=== PATIENT | male | born 1970 | race African-American/Black ===

== ENCOUNTER 2020-06-21 07:27 | Outpatient (REF) | payer OTHER, SELFPAY | END 2020-06-21 07:28 | disposition home or self-care (01) | LOC: HO.LAB 07:27 | PROVIDERS: Visit Provider Internal Medicine | DX: Z20.828 Contact with and (suspected) exposure to other viral communicable diseases (principal) | CPT/HCPCS: 36415; 87635 ==

== ENCOUNTER 2021-09-14 08:02 | Outpatient (REF) | payer OTHER, SELFPAY ==
[2021-09-14 15:40] LABS: COVID-19 Test Negative (Negative)
== END 2021-09-14 08:03 | disposition home or self-care (01) ==
LOC: HO.LAB 08:02
PROVIDERS: Visit Provider Internal Medicine
DX: Z20.822 Contact with and (suspected) exposure to COVID-19 (principal)
CPT/HCPCS: 36415; 87635; C9803

== ENCOUNTER 2021-09-21 14:17 | Outpatient (REF) | payer OTHER, SELFPAY ==
[2021-09-21 15:59] LABS: Binax Internal Control QC Valid; Binax Now Covid-19 Ag Negative (Negative)
== END 2021-09-21 14:18 | disposition home or self-care (01) ==
LOC: HO.LAB 14:17
PROVIDERS: Visit Provider Internal Medicine
DX: Z20.822 Contact with and (suspected) exposure to COVID-19 (principal)
CPT/HCPCS: 36415; C9803